=== PATIENT | male | born 2000 | race African-American/Black ===

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

== ENCOUNTER 2020-01-16 12:05 | Emergency (ER) | payer SELFPAY ==
[~2020-01-16] VITALS: Ht 175.3 cm; Wt 75.0 kg
[2020-01-16 15:30] VITALS: BP 129/71
== END 2020-01-16 15:30 | disposition home or self-care (01) | DRG 866 ==
LOC: ED 12:05
DX: B34.9 Viral infection, unspecified (principal); F17.200 Nicotine dependence, unspecified, uncomplicated; Z20.828 Contact with and (suspected) exposure to other viral communicable diseases

== ENCOUNTER 2020-03-10 21:20 | Emergency (ER) | payer SELFPAY ==
[~2020-03-10] VITALS: Ht 175.3 cm; Wt 77.0 kg
[2020-03-10 22:11] LABS: HEMATOCRIT 48.1 % (39.0-50.0); HEMOGLOBIN 15.5 g/dl (14.0-18.0); IMMATURE GRANULOCYTES 0.1 % (0.0-5.0); MEAN CELL VOLUME 88.4 fL CALC (80.0-100.0); MEAN CORPUSCULAR HGB 28.5 pG CALC (26.0-32.0); MEAN CORPUSCULAR HGB CONC 32.2 g/dL CAL (32.0-36.0); NEUT# 5.25 thou/uL (1.82-7.42); RED BLOOD COUNT 5.44 mill/uL (4.70-6.10); RED CELL DISTRI WIDTH 13.3 % (11.5-15.5)
[2020-03-10 22:14] LABS: URINE BILIRUBIN - DIPSTICK NEGATIVE (NEGATIVE); URINE BLOOD DIPSTICK NEGATIVE (NEGATIVE); URINE COLOR YELLOW; URINE GLUCOSE - DIPSTICK NEGATIVE (NEGATIVE); URINE KETONE NEGATIVE (NEGATIVE); URINE LEUK ESTERASE NEGATIVE (NEGATIVE); URINE NITRITE - DIPSTICK NEGATIVE (Negative); URINE PH 6.5 (4.5-8.0); URINE PROTEIN - DIPSTICK NEGATIVE (NEG-TRACE); URINE SPECIFIC GRAVITY 1.025; URINE UROBILINOGEN - DIPSTICK 0.2 E.U./dL (0.2)
[2020-03-10 22:31] LABS: ETHYL ALCOHOL 0 mg/dl (0-30)
[2020-03-10 22:32] LABS: ALBUMIN 4.4 g/dL (3.2-5.0); ALKALINE PHOSPHATASE 56 u/l (38-126); ANION GAP 11 (6-22 (CALC)); BILIRUBIN, TOTAL 0.7 mg/dL (0.0-1.4); BUN 20 mg/dL (9-20); BUN/CREATININE RATIO 20 (12-20 (CALC)); CARBON DIOXIDE 26 mmol/l (22-30); CHLORIDE 105 mmol/l (95-108); GFR > 60 ML/MIN (>=60 (CALC)); GFR FOR AFR.AMER. > 60 ML/MIN (>=60 (CALC)); POTASSIUM 3.6 mmol/l (3.5-5.1); SGOT/AST 29 u/l (17-59); SODIUM 139 mmol/l (137-146); TOTAL PROTEIN 7.5 g/dL (6.3-8.2)
[2020-03-10 22:43] LABS: MYOGLOBIN 109 ng/mL (0 - 121)
[2020-03-11 06:10] VITALS: BP 153/82
== END 2020-03-11 06:10 | disposition home or self-care (01) | DRG 918 ==
LOC: ED 21:20
PROVIDERS: Emergency Medicine
DX: T42.6X1A Poisoning by other antiepileptic and sedative-hypnotic drugs, accidental (unintentional), initial encounter (principal); E78.00 Pure hypercholesterolemia, unspecified; F17.200 Nicotine dependence, unspecified, uncomplicated; Z20.822 Contact with and (suspected) exposure to COVID-19

== ENCOUNTER 2020-03-11 14:27 | Emergency (ER) | payer SELFPAY ==
[~2020-03-11] VITALS: Ht 175.3 cm; Wt 65.0 kg
[2020-03-11 16:19] LABS: HEMATOCRIT 50.6 % (39.0-50.0); HEMOGLOBIN 16.4 g/dl (14.0-18.0); IMMATURE GRANULOCYTES 0.1 % (0.0-5.0); MEAN CELL VOLUME 88.8 fL CALC (80.0-100.0); MEAN CORPUSCULAR HGB 28.8 pG CALC (26.0-32.0); MEAN CORPUSCULAR HGB CONC 32.4 g/dL CAL (32.0-36.0); NEUT# 4.88 thou/uL (1.82-7.42); RED BLOOD COUNT 5.7 mill/uL (4.70-6.10); RED CELL DISTRI WIDTH 13.2 % (11.5-15.5)
[2020-03-11 16:26] LABS: ALBUMIN 4.5 g/dL (3.2-5.0); ALKALINE PHOSPHATASE 57 u/l (38-126); ANION GAP 9 (6-22 (CALC)); BILIRUBIN, TOTAL 0.8 mg/dL (0.0-1.4); BUN 17 mg/dL (9-20); BUN/CREATININE RATIO 17 (12-20 (CALC)); CARBON DIOXIDE 28 mmol/l (22-30); CHLORIDE 105 mmol/l (95-108); GFR > 60 ML/MIN (>=60 (CALC)); GFR FOR AFR.AMER. > 60 ML/MIN (>=60 (CALC)); LIPASE 267 u/l (23-300); POTASSIUM 3.6 mmol/l (3.5-5.1); SGOT/AST 29 u/l (17-59); SODIUM 138 mmol/l (137-146); TOTAL PROTEIN 7.8 g/dL (6.3-8.2)
[2020-03-11 17:30] LABS: URINE BILIRUBIN - DIPSTICK NEGATIVE (NEGATIVE); URINE BLOOD DIPSTICK NEGATIVE (NEGATIVE); URINE COLOR YELLOW; URINE GLUCOSE - DIPSTICK NEGATIVE (NEGATIVE); URINE KETONE NEGATIVE (NEGATIVE); URINE LEUK ESTERASE NEGATIVE (NEGATIVE); URINE NITRITE - DIPSTICK NEGATIVE (Negative); URINE PROTEIN - DIPSTICK NEGATIVE (NEG-TRACE); URINE SPECIFIC GRAVITY 1.025
[2020-03-11 17:48] VITALS: BP 120/87
== END 2020-03-11 17:49 | disposition home or self-care (01) | DRG 918 ==
LOC: ED 14:27
PROVIDERS: Student in an Organized Health Care Education/Training Program
DX: T50.901A Poisoning by unspecified drugs, medicaments and biological substances, accidental (unintentional), initial encounter (principal); I10 Essential (primary) hypertension; F32.9 Major depressive disorder, single episode, unspecified; E78.00 Pure hypercholesterolemia, unspecified; F17.200 Nicotine dependence, unspecified, uncomplicated

== ENCOUNTER 2020-12-25 21:55 | Emergency (ER) | payer OTHER ==
[~2020-12-25] VITALS: Ht 177.8 cm; Wt 84.0 kg
[2020-12-26] MEDS ORDERED: CRIXIVAN400 MG PO (00:49)
[2020-12-26] MEDS ORDERED: COMBIVIR 1501 COMBO PO (00:49)
[2020-12-26 02:07] LABS: HEMATOCRIT 45.5 % (39.0-50.0); HEMOGLOBIN 15.2 g/dl (14.0-18.0); MEAN CELL VOLUME 88.7 fL CALC (80.0-100.0); MEAN CORPUSCULAR HGB 29.6 pG CALC (26.0-32.0); MEAN CORPUSCULAR HGB CONC 33.4 g/dL CAL (32.0-36.0); NEUT# 1.75 thou/uL (1.82-7.42); RED BLOOD COUNT 5.13 mill/uL (4.70-6.10); RED CELL DISTRI WIDTH 12.7 % (11.5-15.5)
[2020-12-26 02:19] LABS: ALBUMIN 4.2 g/dL (3.2-5.0); ALKALINE PHOSPHATASE 44 u/l (38-126); ANION GAP 12 (6-22 (CALC)); BILIRUBIN, TOTAL 0.7 mg/dL (0.0-1.4); BUN 22 mg/dL (9-20); BUN/CREATININE RATIO 20 (12-20 (CALC)); CARBON DIOXIDE 27 mmol/l (22-30); CHLORIDE 103 mmol/l (95-108); CREATININE 1.1 mg/dL (0.7-1.3); GFR > 60 ML/MIN (>=60 (CALC)); GFR FOR AFR.AMER. > 60 ML/MIN (>=60 (CALC)); SGOT/AST 20 u/l (17-59); SODIUM 138 mmol/l (137-146); TOTAL PROTEIN 7.1 g/dL (6.3-8.2)
[2020-12-26 03:46] VITALS: BP 123/83
== END 2020-12-26 03:35 | DRG 379 ==
LOC: ED 21:55
PROVIDERS: Family Medicine
DX: K62.5 Hemorrhage of anus and rectum (principal); E78.00 Pure hypercholesterolemia, unspecified; I10 Essential (primary) hypertension; F32.A Depression, unspecified